=== PATIENT | female | born 1990 | race African-American/Black ===

== ENCOUNTER 2021-03-17 04:52 | Emergency (ER) | payer MEDICAID ==
[~2021-03-17] VITALS: Ht 165.1 cm; Wt 67.0 kg
[2021-03-17 04:56] VITALS: BP 118/69
[2021-03-17] MEDS ORDERED: KETOROLAC 30MG/ML VIAL IM STA (05:23)
[2021-03-17] MEDS ORDERED: METHYLPREDNISOLONE SOD SUCC 125 MG/2 ML VIAL IM STA (05:23)
[2021-03-17] MEDS ORDERED: PENICILLIN G BENZATHINE 1,200,000 UNITS/2ML SYR IM ONE (05:30)
[2021-03-17] MEDS ORDERED: AMOX-494 PO (06:12)
[2021-03-17] MEDS ORDERED: IBUP-2029 PO (06:12)
== END 2021-03-17 06:39 | disposition home or self-care (01) ==
LOC: ER 04:52
DX: J02.9 Acute pharyngitis, unspecified (principal); K12.2 Cellulitis and abscess of mouth; Z88.6 Allergy status to analgesic agent
CPT/HCPCS: 87070; 87430; 96372; 99284; J0561; J1885; J2930; Z7610